=== PATIENT | male | born 1975 | race African-American/Black ===

== ENCOUNTER 2017-12-09 19:27 | Emergency (ER) | payer BC, OTHER ==
[~2017-12-09] VITALS: Ht 180.3 cm; Wt 83.5 kg
[~2017-12-09 19:27] MED LIST: NORCO 5-325 TA1 EACH PO; NORFLEX100 MG PO
[2017-12-09 19:38] LABS: URINE BILIRUBIN NEGATIVE (Negative); URINE BLOOD NEGATIVE (Negative); URINE CLARITY CLEAR; URINE COLOR YELLOW; URINE GLUCOSE-RANDOM* NEGATIVE (Negative); URINE KETONES NEGATIVE (Negative); URINE LEUKOCYTES-REFLEX TRACE (Negative); URINE NITRITE-REFLEX NEGATIVE (Negative); URINE PROTEIN (DIPSTICK) NEGATIVE (Negative); URINE UROBILINOGEN 0.2 E.U./dl (0.2-1.0)
[2017-12-09] MEDS ORDERED: PYRIDIUM200 MG PO (20:26)
[2017-12-09] MEDS ORDERED: VIBRAMYCIN 100100 MG PO (20:26)
[2017-12-09 20:37] VITALS: BP 127/85
== END 2017-12-09 20:48 | disposition home or self-care (01) ==
LOC: ER 19:27
PROVIDERS: Emergency Medicine
DX: N34.2 Other urethritis (principal); Z87.891 Personal history of nicotine dependence

== ENCOUNTER 2019-10-16 17:53 | Emergency (ER) | payer OTHER ==
[~2019-10-16] VITALS: Ht 180.3 cm; Wt 83.9 kg
[~2019-10-16 17:53] MED LIST changes: +PYRIDIUM200 MG PO; +VIBRAMYCIN 100100 MG PO
[2019-10-16 18:51] LABS: ABSOLUTE NEUTROPHILS 4.9 thou/uL (1.4-8.2); EOSINOPHILS 0.3 % (0.0-3.0); HEMATOCRIT 43.4 % (42.0-52.0); LYMPHOCYTES 20.6 % (24.0-44.0); MCH 31.1 pg (26.0-34.0); MCHC 34.5 g/dL (28.0-37.0); MCV 90.1 fL (80.0-100.0); MONOCYTES 6.4 % (1.0-8.0); PLATELET COUNT 310 thou/uL (150-400); POLYS 71.7 % (36.0-66.0); RBC 4.82 mil/uL (4.50-6.00); RDW 13.4 % (10.5-14.5); WBC 6.9 thou/uL (4.0-11.0)
[2019-10-16 19:00] LABS: ANION GAP 9 mmol/L (7-16); BUN 8 mg/dL (7-18); CALCIUM 9.8 mg/dL (8.5-10.1); CHLORIDE 100 mmol/L (98-107); CO2 27 mmol/L (21-32); GLUCOSE 108 mg/dL (74-106); POTASSIUM 3.7 mmol/L (3.5-5.1); SODIUM 136 mmol/L (136-145)
[2019-10-16 19:10] LABS: ALBUMIN 4.5 g/dL (3.4-5.0); SGOT 25 U/L (15-37); SGPT 70 U/L (30-65); TOTAL BILIRUBIN 0.8 mg/dL (<0.1-1.0); TOTAL PROTEIN 8.2 g/dL (6.4-8.2); TROPONIN-I <0.06 ng/mL (<0.06)
[2019-10-16] MEDS ORDERED: PROAIR HFA8.5 GM INH (19:29)
[2019-10-16 19:36] VITALS: BP 147/103
--- NOTE | 2019-10-17 09:56 | EKG ---
[facility] [place] [address] ELECTROCARDIOGRAM REPORT Name: LEXII BOLDEN Room #: [facility]#: [id number] Admission: 10/16/19 Attend Phys: Discharge: 10/16/19 Date of : 71 Report #: [id number] THIS REPORT FOR: cc: Blayne Webber MD, Rene P. MD Park, Jin S. MD ~ THIS REPORT FOR: //name// [facility] ED Test Date: 2019-10-16 Test Time: 18:30:17 Pat Name: LEXII BOLDEN Department: Room: Gender: Manager Education: [facility] : 1975 Requested By: Jose Juan Glasgow Order Number: [id number] MD: Eduardo Del Rosario Measurements Intervals [place] Rate: 79 P: 59 GA: 163 QRS: 3 QRSD: 89 T: 16 QT: 360 QTc: 413 Interpretive Statements Sinus rhythm Nonspecific T-wave abnormalities Compared to ECG 06/14/2004 14:23:11 ST (T wave) deviation no longer present Electronically Signed On 10-17-2019 9:55:29 CDT by Eduardo Del Rosario [email or web address] <ELECTRONICALLY SIGNED> By: Eduardo Del [place] [id number] Eduardo Del Rosario MD /JULIEN
== END 2019-10-16 19:36 | disposition home or self-care (01) ==
LOC: ER 17:53
PROVIDERS: Emergency Medicine
DX: R06.02 Shortness of breath (principal); R05 Cough; R50.9 Fever, unspecified; Z79.899 Other long term (current) drug therapy; Z98.890 Other specified postprocedural states; Z87.891 Personal history of nicotine dependence